=== PATIENT | male | born 1990 | race Caucasian/White ===

== ENCOUNTER 2021-06-07 09:02 | Emergency (ER) | payer OTHER ==
--- NOTE | 2021-06-07 10:11 | CR ---
Right foot: 4 views of the right foot were obtained. Comparison: No prior foot study is available. Soft tissue swelling is noted within the dorsum of the foot. Joint spaces are preserved. No acute fracture, dislocation or other bony abnormality is appreciated. Impression: 1. Soft tissue swelling within the dorsum of the foot. 2. No definite bony abnormality is appreciated. Diagnostic code #2
--- NOTE | 2021-06-07 11:51 | EDM.PDOC ---
ED HPI GENERAL MEDICAL PROBLEM - General Chief Complaint: Lower Extremity Injury/Pain Stated Complaint: FOOT INJURY Time Seen by Provider: 06/07/21 11:20 Source of Information: Reports: Patient, RN Notes Reviewed History Limitations: Reports: No Limitations - History of Present Illness INITIAL COMMENTS - FREE TEXT/NARRATIVE: Patient is a 31-year-old male presenting to the emergency department with complaints of pain to his right foot. Reports yesterday he dropped a piece of heavy equipment on it. He has been able to walk on it, however it is painful. Denies any previous injuries to this area. Right Foot Pain Score (Numeric/FACES): 8 - Related Data Allergies Allergy/AdvReac Type Severity Reaction Status Date / Time No Known Allergies Allergy Verified 06/07/21 09:25 Home Meds: Home Meds . [No Known Home Meds] 06/07/21 [History] Past Medical History - Past Surgical History HEENT Surgical History: Reports: Other (See Below) Other HEENT Surgeries/Procedures: facial reconstruction surgery Musculoskeletal Surgical History: Reports: Other (See Below) Other Musculoskeletal Surgeries/Procedures:: thumb surgery Social & Family History - Tobacco Use Tobacco Use Status *Q: Current Every Day Tobacco User Years of Tobacco use: 8 Packs/Tins Daily: 1 - Recreational Drug Use Recreational Drug Use: Yes Drug Use in Last 12 Months: Yes Recreational Drug Type: Reports: Marijuana/Hashish Recreational Drug Use Frequency: Daily Review of Systems - Review of Systems Review Of Systems: Comprehensive ROS is negative, except as noted in HPI. ED EXAM, GENERAL - Physical Exam Exam: See Below Exam Limited By: No Limitations General Appearance: Alert, WD/WN, No Apparent Distress Respiratory/Chest: No Respiratory Distress, Lungs Clear, Normal Breath Sounds, No Accessory Muscle Use, Chest Non-Tender Cardiovascular: Normal Peripheral Pulses, Regular Rate, Rhythm, No Edema, No Gallop, No JVD, No Murmur, No Rub Extremities: Other (Faint ecchymosis to the dorsal aspect of the right foot. No edema or obvious deformity.) Neurological: Alert, Oriented, CN II-XII Intact, Normal Cognition, Normal Reflexes, No Motor/Sensory Deficits Psychiatric: Normal Affect, Normal Mood Skin Exam: Warm, Dry, Intact, Normal Color, No Rash Course - Vital Signs Last Recorded V/S: Last Vital Signs Temp 97 F 06/07/21 09:23 Pulse 57 L 06/07/21 09:23 Resp 16 06/07/21 09:23 BP 128/69 06/07/21 09:23 Pulse Ox 94 L 06/07/21 09:23 - Re-Assessments/Exams Free Text/Narrative Re-Assessment/Exam: Patient is a 31-year-old male presenting to the emergency department complains of pain to his right foot. Reports yesterday he dropped a piece of heavy equipment on it. X-rays were completed using standing orders and show no fracture. Juan Jose wrap was applied. Recommend ice and elevation. Discharge instructions as documented. Departure - Departure Time of Disposition: 11:50 Disposition: Home, Self-Care 01 Condition: Good Clinical Impression: Contusion of foot, right Qualifiers: Encounter type: initial encounter Qualified Code(s): S90.31XA - Contusion of right foot, initial encounter - Discharge Information *PRESCRIPTION DRUG MONITORING PROGRAM REVIEWED*: No *COPY OF PRESCRIPTION DRUG MONITORING REPORT IN PATIENT BLAKE: No Instructions: Contusion Referrals: PCP,None [Primary Care Provider] - Additional Instructions: Wear the Juan Jose wrap as needed for the next few days. Ice and elevate the extremity when at rest. Use Tylenol and ibuprofen as a for discomfort If still having significant pain after 1 week, recommend follow-up in the clinic. Return to ER as needed. Sepsis Event Note (ED) - Evaluation Sepsis Screening Result: No Definite Risk - Focused Exam Vital Signs: Vital Signs Temp Pulse Resp BP Pulse Ox 06/07/21 09:23 97 F 57 L 16 128/69 94 L
== END 2021-06-07 12:00 | disposition home or self-care (01) ==
LOC: JD.ED 09:02
DX: S90.31XA Contusion of right foot, initial encounter (principal); Z72.0 Tobacco use; X50.0XXA Overexertion from strenuous movement or load, initial encounter
CPT/HCPCS: 73630-26-RT; 73630-RT; 99283-25